=== PATIENT | female | born 1965 | race Caucasian/White ===

== ENCOUNTER 2019-08-14 19:35 | Emergency (ER) | payer SELFPAY ==
[~2019-08-14] VITALS: Ht 170.2 cm; Wt 75.0 kg
[2019-08-14 19:51] VITALS: Ht 170.2 cm; Wt 75.0 kg
[2019-08-14] MEDS ORDERED: PREDNISONE10 MG PO (21:13)
[2019-08-14] MEDS ORDERED: VISTARIL25 MG PO (21:13)
[2019-08-14 21:33] VITALS: BP 139/80
== END 2019-08-14 21:30 | disposition home or self-care (01) ==
LOC: D.ER 19:35
DX: T78.40XA Allergy, unspecified, initial encounter (principal); R21 Rash and other nonspecific skin eruption

== ENCOUNTER 2019-08-31 06:30 | Emergency (ER) | payer SELFPAY ==
[~2019-08-31] VITALS: Ht 170.2 cm; Wt 79.5 kg
[~2019-08-31 06:30] MED LIST: PREDNISONE10 MG PO; VISTARIL25 MG PO
[2019-08-31 06:34] VITALS: Ht 170.2 cm; Wt 79.5 kg
[2019-08-31] MEDS ORDERED: ESTRACE1 MG PO (06:35)
[2019-08-31 06:58] LABS: BASOPHILS 0.1 % (0-2); EOSINOPHILS 0.3 % (0-7); HEMOGLOBIN 14.3 g/dL (12-16); IMMATURE GRANULOCYTES 0.1 % (0-5); LYMPHOCYTES 16.3 % (15-50); MCH 28.9 pg (26.0-34.0); MEAN PLATELET VOLUME 8.9 fL (7.4-10.4); MONOCYTES 7.3 % (2-11); NEUTROPHILS 75.9 % (40-80); PLATELET COUNT 253 10x3/uL (130-400); RBC 4.94 10x6/uL (4.00-5.40); WBC 9.7 10x3/uL (4.8-10.8)
[2019-08-31 07:09] LABS: CALC OSMOLALITY 270 mosm/kg (275-300); CALCIUM 9.6 mg/dL (8.5-10.1); CARBON DIOXIDE 26.5 mmol/L (21.0-32.0); CHLORIDE - SERUM 98 mmol/L (98-107); CREATININE - SERUM 1.1 mg/dL (0.6-1.3); GLUCOSE 137 mg/dL (74-106); POTASSIUM - SERUM 4.2 mmol/L (3.5-5.1); SODIUM 135 mmol/L (136-145); UREA NITROGEN 10 mg/dL (7-18); eGFR NON AFRICAN AMERICAN 55 mL/min (90-120)
[2019-08-31 07:18] LABS: ALBUMIN 3.6 g/dL (3.4-5.0); ALKALINE PHOSPHATASE 57 U/L (46-116); ALT (SGPT) 53 U/L (10-68); AMYLASE - SERUM 41 U/L (25-115); BILIRUBIN - TOTAL 0.43 mg/dL (0.2-1.3); LIPASE 100 U/L (73-393); PROTEIN - SERUM 7.8 g/dL (6.4-8.2); TROPONIN-I < 0.017 ng/mL (0.000-0.060)
[2019-08-31 07:25] LABS: APPEARANCE CLEAR (CLEAR); BACTERIA FEW /hpf (NEGATIVE); BILIRUBIN NEGATIVE (NEGATIVE); COLOR DK YELLOW (YELLOW); EPITHELIAL CELLS RARE /hpf (0-5); GLUCOSE NEGATIVE (NEGATIVE); KETONE NEGATIVE (NEGATIVE); NITRITE NEGATIVE (NEGATIVE); PROTEIN NEGATIVE (NEGATIVE); UROBILINOGEN NORMAL (NORMAL); WHITE CELLS - URINE OCC /hpf (NEGATIVE)
[2019-08-31] MEDS ORDERED: NAPROSYN500 MG PO (08:08)
[2019-08-31] MEDS ORDERED: TYLENOL #4 W/CO1 TAB PO (08:08)
[2019-08-31 08:15] VITALS: BP 134/90
== END 2019-08-31 08:16 | disposition home or self-care (01) ==
LOC: D.ER 06:30
PROVIDERS: Emergency Medicine
DX: M94.0 Chondrocostal junction syndrome [Tietze] (principal)